=== PATIENT | female | born 1980 | race Caucasian/White ===

== ENCOUNTER 2018-08-30 11:44 | Emergency (ER) | payer MEDICAID ==
[2018-08-30 13:53] VITALS: BP 110/77
== END 2018-08-30 13:53 | disposition home or self-care (01) ==
LOC: ED 11:44
DX: R51 Headache (principal); R42 Dizziness and giddiness; H53.149 Visual discomfort, unspecified; R11.2 Nausea with vomiting, unspecified
CPT/HCPCS: J0780

== ENCOUNTER 2020-08-26 11:44 | Emergency (ER) | payer MEDICAID ==
[~2020-08-26] VITALS: Ht 170.2 cm; Wt 82.6 kg
[2020-08-26 12:07] VITALS: Ht 170.2 cm; Wt 82.6 kg
[2020-08-26 13:05] LABS: BASOPHIL % 0.8 % (0.2-1.3); PLATELET COUNT 324 x10^3mcL (179-408)
[2020-08-26 13:17] LABS: RED CELL DISTRIBUTION WIDTH 17.9 % (12.3-17.7)
[2020-08-26 13:23] LABS: CALCIUM 8.7 mg/dL (8.5-10.1); CARBON DIOXIDE 29.4 mmol/L (21-32); CHLORIDE SERUM 105 mmol/L (98-107); CREATININE SERUM 0.7 mg/dL (0.6-1.0); GFR1 > 60 mL/min; GLUCOSE SERUM 82 mg/dL (74-106); POTASSIUM SERUM 3.6 mmol/L (3.5-5.1); SODIUM SERUM 139 mmol/L (136-145)
[2020-08-26 13:27] LABS: microscopic required? YES; urine erythrocyte 1+ (NEGATIVE)
[2020-08-26 13:27] LABS: ALBUMIN 3.5 g/dL (3.4-5.0); ALKALINE PHOSPHATASE 93 U/L (46-116); ALT/SGPT 20 U/L (14-59); AMYLASE 41 U/L (25-115); AST/SGOT 14 U/L (15-37); BILIRUBIN TOTAL 0.2 mg/dL (0.20-1.00); LIPASE 105 IU/L (73-393); TOTAL PROTEIN, SERUM 7.2 g/dL (6.4-8.2)
[2020-08-26 15:34] VITALS: BP 106/53
== END 2020-08-26 16:26 | disposition home or self-care (01) ==
LOC: ED 11:44
PROVIDERS: Emergency Medicine
DX: R10.31 Right lower quadrant pain (principal); R10.32 Left lower quadrant pain
CPT/HCPCS: J1885